=== PATIENT | female | born 1995 | race Caucasian/White ===

== ENCOUNTER 2022-11-24 16:54 | Emergency (ER) | payer BC, SELFPAY ==
[2022-11-24 17:07] VITALS: BP 141/84; PULSE 86; RESP 16; TEMP 36.7; O2SAT 99
--- NOTE | 2022-12-08 17:09 | ED.GENADULT ---
HPI - General Adult General Chief complaint: Nausea/Vomiting/Diarrhea Stated complaint: Vomiting Source: patient Mode of arrival: ambulatory Limitations: no limitations History of Present Illness HPI narrative: patient presents to the facility requesting a note to return to work. He experience nausea, vomiting and diarrhea and missed 2 days work as resolved. He has not had any symptoms since 0900 this morning. He had a fever yesterday but that has since resolved. He denies any abdominal pain, blood in the stool. No recent ETOH use. He thinks he had a viral illness which has already resolved. Related Data Allergies Allergy/AdvReac Type Severity Reaction Status Date / Time No Known Allergies Allergy Verified 11/24/22 17:05 Review of Systems Review of Systems: CONSTITUTIONAL: Reports recent fever, none currently. Denies chills. EYES: Denies visual changes, redness, or discharge. ENT: Denies rhinorrhea, congestion, sore throat, or otalgia. CARDIOVASCULAR: Denies chest pain, palpitations, or edema. RESPIRATORY: Denies cough or dyspnea. GASTROINTESTINAL: Reports recent nausea, vomiting, diarrhea, now resolved. GENITOURINARY: Denies dysuria or hematuria. SKIN: Denies rash or itching. MUSCULOSKELETAL: Denies back pain, joint pain, or myalgia. NEUROLOGIC: Denies headache, numbness, dizziness, or weakness. PSYCHIATRIC: Denies anxiety or depression. [facility] Past Medical History Medical History No pertinent past medical history Surgical History Surgical History No pertinent past surgical history Family History Family History Mother Family history non-contributory Social History Social History (Updated 12/08/22 @ 17:16 by Da Nunes, [facility], ) Substance use: never Gender identity (if verbalized by the patient): Male Spiritual care concerns: No Exam Narrative: GENERAL: Well-appearing, well-nourished, and in no acute distress. HEAD: Normocephalic, atraumatic. EYES: PERRLA and EOMI. ENT: Nares clear, no rhinorrhea or epistaxis. Mucous membranes moist. Oropharynx without tonsillar hypertrophy exudate or other lesions. Bilateral TMs pearly hoffman nonbulging NECK: Supple. No adenopathy or masses. No carotid bruits or JVD CHEST: Clear to auscultation. No respiratory distress. No wheezes rales or rhonchi HEART: Regular rate and rhythm. No murmur heard. Normal peripheral pulses. ABDOMEN: Soft, nontender, nondistended, normal active bowel sounds. EXTREMITIES: Normal range of motion. No edema. SKIN: Warm, dry, no rash. NEURO: No focal deficits. Alert and oriented x3. PSYCH: Normal mood and affect. Course Course Emergency Course: This is a 27-year-old male who presented requesting a note to return to work. He is currently asymptomatic. This seems like a reasonable request. Follow up with primary provider. Go to the ER for intractable vomiting or pain. Patient in agreement plan of care Level of Care: Express Care Visit Vital Signs Vital signs: Vital Signs Temperature 36.7 C 11/24/22 17:07 Pulse Rate 86 11/24/22 17:07 Respiratory Rate 16 11/24/22 17:07 Blood Pressure 141/84 H 11/24/22 17:07 Pulse Oximetry 99 11/24/22 17:07 Oxygen Delivery Room Air 11/24/22 17:07 Temperature 36.7 C 11/24/22 17:07 Pulse Rate 86 11/24/22 17:07 Respiratory Rate 16 11/24/22 17:07 Blood Pressure 141/84 H 11/24/22 17:07 Pulse Oximetry 99 11/24/22 17:07 Oxygen Delivery Room Air 11/24/22 17:07 Medical Decision Making Vital Signs Vital Signs: Vital Signs Temperature 36.7 C 11/24/22 17:07 Pulse Rate 86 11/24/22 17:07 Respiratory Rate 16 11/24/22 17:07 Blood Pressure 141/84 H 11/24/22 17:07 Pulse Oximetry 99 11/24/22 17:07 Oxygen Delivery Room Air 11/24/22 17:07 Tem
== END 2022-11-24 18:26 | disposition home or self-care (01) ==
PROVIDERS: Emergency Provider Nurse Practitioner; PCP Emergency Medicine
DX: R11.2 Nausea with vomiting, unspecified (principal)
CPT/HCPCS: 99211; 99212; G0463

== ENCOUNTER 2023-03-25 16:41 | Emergency (ER) | payer BC, SELFPAY ==
[2023-03-25 16:50] VITALS: BP 141/68; PULSE 76; RESP 16; TEMP 36.5; O2SAT 100
--- NOTE | 2023-03-25 17:15 | ED.GENADULT ---
HPI - General Adult General Chief complaint: Nausea/Vomiting/Diarrhea Stated complaint: Vomiting Time Seen by Provider: 03/25/23 17:15 Source: patient, RN notes reviewed and old records reviewed Mode of arrival: ambulatory Limitations: no limitations History of Present Illness HPI narrative: 27-year-old male presents for nausea vomiting. Denied abdominal pain. Patient reports that he left work early on Wednesday. Had vomiting on Wednesday. Called in sick today but does feel better. Has been able to eat and drink without issue Denies fevers currently denies any nausea or vomiting. Denies any abdominal pain. Denies any diarrhea. Related Data Home Medications Medication Instructions Recorded Confirmed phentermine 37.5 mg tablet mg 03/25/23 Allergies Allergy/AdvReac Type Severity Reaction Status Date / Time No Known Allergies Allergy Verified 11/24/22 17:05 Review of Systems Review of Systems: All systems reviewed & are unremarkable except as noted in HPI and below Constitutional: Constitutional: Reports no additional constitutional complaints Eyes: Eyes: Reports no additional eye complaints ENT: Reports system reviewed and no additional complaints, except as documented Cardiovascular: Cardiovascular: Reports no additional cardiovascular complaints, Denies chest pain and Denies dyspnea Respiratory: Respiratory: Reports no additional respiratory complaints, Denies chest congestion, Denies cough and Denies dyspnea Gastrointestinal: Gastrointestinal: Reports as per HPI, Denies abdominal pain, Reports nausea and Reports vomiting Musculoskeletal: Musculoskeletal: Reports no additional musculoskeletal complaints Integumentary/Breasts: Skin/Breast: Reports system reviewed and no additional complaints, except as docu Neurologic: Reports system reviewed and no additional complaints, except as documented Psychiatric: Psychiatric: Reports no additional psychiatric complaints Allergic/Immunologic: Allergic/Immunologic: Reports no additional allergic/immunologic complaints [facility] Past Medical History Medical History (Updated 03/25/23 @ 17:23 by Gabriela Chase APRN) No pertinent past medical history Surgical History Surgical History No pertinent past surgical history Family History Family History Mother Family history non-contributory Social History Social History Substance use: never Gender identity (if verbalized by the patient): Male Spiritual care concerns: No Comments At the time of my signature, I reviewed and agree with the nursing past medical, surgical, social, and family history. There is no relevant family history pertinent to the patient complaint. Exam Const: General: cooperative, healthy appearing, comfortable, no acute distress, well developed, alert and well nourished Nutritional Appearance: well nourished Orientation/consciousness: patient oriented x3 Limitations: no limitations HENMT: Head: normal to inspection Ears: hearing grossly normal bilaterally and external ears normal Face/Nose/Sinus: Normal external nose present, Normal nares present, Normal nasal mucous membranes and turbinates present and normal facial exam Face and sinus: normal facial exam Mouth: Yes lip normal and Yes moist mucous membranes Eyes: General: appearance normal, both eyes and all related structures Alignment and Position: alignment normal Periorbital: periorbital findings normal Pupils: Equal, round and reactive pupils present EOM: EOMs intact bilaterally Neck: Neck: normal visual inspection, full ROM, no lymphadenopathy and no meningeal signs Chest: Chest palpation & inspection: normal inspection of the chest Resp: Effort & Inspection: normal respiratory effort and able to speak in complete sentences Auscultation: clear t
== END 2023-03-25 17:32 | disposition home or self-care (01) ==
PROVIDERS: Emergency Provider Nurse Practitioner; PCP Nurse Practitioner Family
DX: R11.2 Nausea with vomiting, unspecified (principal)
CPT/HCPCS: 99211; G0463

== ENCOUNTER 2023-07-30 11:22 | Emergency (ER) | payer BC, SELFPAY ==
--- NOTE | ~2023-07-30 | XR_ITS ---
EXAMINATION: XR thoracic spine 3V DATE: 07/30/2023 11:52 INDICATION: Mid spine pain. TECHNIQUE: 3 views of thoracic spine on 5 radiographs were obtained. COMPARISON: None. FINDINGS: There is 7 degrees dextrocurvature of upper thoracic spine and 6 degrees levocurvature of l ower thoracic spine. Vertebral body heights are normal. There is mildly decreased disc height at mult iple levels in mid thoracic spine. There are endplate osteophytes at multiple levels. IMPRESSION: 1. Mild thoracic spondylosis. Reviewed, dictated and finalized at location A. STANT TO THE VICE PRESIDENT
[2023-07-30 11:27] VITALS: BP 155/90; PULSE 74; RESP 18; TEMP 36.3; O2SAT 98
--- NOTE | 2023-07-30 11:33 | ED.BACK ---
HPI - Back Pain/Injury General Chief Complaint: Back Pain/Injury Stated Complaint: Back Pain Time Seen by Provider: 07/30/23 11:30 Source: patient Mode of arrival: ambulatory Limitations: no limitations History of Present Illness HPI Narrative: Vinod is a 28-year-old male patient presenting to clinic today with complaints of severe thoracic back pain. He reports symptoms started when he woke up on Wednesday. Has not taken any Tylenol or Motrin for the pain. Significant other states he tried to use icy Hot without relief. Pain has gradually gotten worse over the past 5 days and rates it a 10/10 currently. Pain is radiating into his sternum. Denies any numbness or tingling in his arms, public relations account executive weakness, saddle anesthesia, loss of bowel bladder, or numbness or tingling going down his legs. Pain is aggravated by movement and obviously has not taken anything to help alleviate the pain other than the icy Hot. Related Data Allergies Allergy/AdvReac Type Severity Reaction Status Date / Time No Known Allergies Allergy Verified 03/26/23 11:00 Review of Systems Review of Systems: Pertinent positives per HPI. Patient denies any fever, chills, rash, headache, visual changes, dizziness, cough, runny nose, sore throat, shortness of breath, chest pain, palpitations, nausea, vomiting, diarrhea, constipation, abdominal pain, or any urinary issues. [facility] Past Medical History Medical History No pertinent past medical history Surgical History Surgical History No pertinent past surgical history Family History Family History Mother Family history non-contributory Other Hypertension Social History Social History Smoking status: Never smoker Alcohol intake: never Substance use: never Gender identity (if verbalized by the patient): Male Spiritual care concerns: No Comments At the time of my signature, I reviewed and agree with the nursing past medical, surgical, social, and family history. There is no relevant family history pertinent to the patient complaint. Exam Narrative: General: Well-developed, well nourished, in no apparent distress Head: Normocephalic, atraumatic. Cardio: Regular rate and rhythm, s1 and s2 normal, no murmur appreciated. Resp: Clear to auscultation bilaterally, no rhonchi, rales, wheezing or rubs. Musculoskeletal: No deformity,tender to palpation over the midthoracic back over the spine, sitting in tripod position to help alleviate pain, bilateral upper and lower muscle strength strong and equal, hand grasp strong and equal, peripheral pulse strong, no edema, no cyanosis,antalgic gait and station Course Course Emergency Course: Portions of this record may have been created with voice recognition software. Level of Care: Express Care Visit Vital Signs Vital signs: Vital Signs Temperature 36.3 C L 07/30/23 11:27 Pulse Rate 74 07/30/23 11:27 Respiratory Rate 18 07/30/23 11:27 Blood Pressure 155/90 H 07/30/23 11:27 Pulse Oximetry 98 07/30/23 11:27 Oxygen Delivery Room Air 07/30/23 11:27 Temperature 36.3 C L 07/30/23 11:27 Pulse Rate 74 07/30/23 11:27 Respiratory Rate 18 07/30/23 11:27 Blood Pressure 155/90 H 07/30/23 11:27 Pulse Oximetry 98 07/30/23 11:27 Oxygen Delivery Room Air 07/30/23 11:27 Vital signs reviewed MDM - Back Pain/Injury MDM Narrative Medical decision making narrative: At the time of visit patient is sitting on the exam table uncomfortable. Rates his pain at 10 at 10. Toradol 60 mg IM given in the clinic today for pain. Thoracic spine x-ray was completed and shows some bone spurs off the endplates of the thoracic spine as well as some mild spondylosis of the right thoracic spine multileve
[2023-07-30] MEDS: KETOROLAC (*BKC) 60 MG/2 ML VIAL IM (11:38)
--- NOTE | 2023-07-30 12:20 | ECG_ITS ---
Measurements Intervals [place] Rate: 63 P: 34 DC: 151 QRS: 40 QRSD: 98 T: 31 QT: 391 QTc: 403 Interpretive Statements SINUS RHYTHM NORMAL ELECTROCARDIOGRAM NO PREVIOUS ECG AVAILABLE FOR COMPARISON Electronically Signed On 07-30-2023 13:40:44 [employer]PORATE TECHNICAL RECRUITER by Saji Clarke M.D.
== END 2023-07-30 12:39 | disposition home or self-care (01) ==
PROVIDERS: Emergency Provider Nurse Practitioner Family; PCP Nurse Practitioner Family
DX: M54.6 Pain in thoracic spine (principal); M47.814 Spondylosis without myelopathy or radiculopathy, thoracic region
CPT/HCPCS: 72072; 81003; 93005; 96372; 99213; G0463; J1885

== ENCOUNTER 2025-05-12 18:02 | Emergency (ER) | payer BC, SELFPAY ==
--- OUTSIDE RECORDS SUMMARY | 2025-05-12 18:11 | XMS_ITS | Clinical Summary ---
Author Organization [facility] Address [address] [place] [address] Care Team Providers Care Lactation Coordinator Name Role Phone Unavailable Primary Care Provider Unavailabl e Source Comments [facility],non-owned Affiliates and Associated Physician Practices is amultiple site organization consisting of ambulatory clinics and hospital sitesin [place], [place], [place] and [place]. This disclosure is being madepursuant to the Care Everywhere program and may not contain all information available regarding this patient. Last updated 18.[employer] Allergies No known active allergies Medications * Be aware that medications may not be up to date on this document. Alwaysverify current medications with the patient. No known medications Social History Tobacco Use Types Packs/Day Years Used Date Smoking Tobacco: Never Smokeless Tobacco: Former Quit: 2015 Sex and Gender Information Value Date Recorded Sex Assigned at Not on file Legal Sex Male 8:34 AM CDT Gender Identity Not on file Sexual Orientation Not on file Last Filed Vital Signs Vital Sign Reading Time Taken Comments Blood Pressure 128/84 01/07/2019 2:44 PM CDT Pulse 83 01/07/2019 2:44 PM CDT Temperature 36.7 C (98.1 F) 01/07/2019 2:44 PM CDT Respiratory Rate 17 01/07/2019 2:44 PM CDT Oxygen Saturation 98% 01/07/2019 2:44 PM CDT Inhaled Oxygen Concentration - - Weight 103.4 kg (228 lb) 01/07/2019 2:44 PM CDT Height 180.3 cm (5' 11) 01/07/2019 2:44 PM CDT Body Mass Index 31.8 01/07/2019 2:44 PM CDT Plan of Treatment Health Maintenance Due Date Last Done Comments HIV SCREENING 2009 HEPATITIS C SCREENING 07/01/2012 DTAP/TDAP/TD VACCINES (1 - Tdap) 2013 HEPATITIS B VACCINE (1 of 3 - 19+ 3-dose series) 2013 HPV VACCINE (1 - 3-dose SCDM series) 2021 DEPRESSION SCREENING 08/30/2024 COVID-19 VACCINE (1 - 2023-2 5 season) 2025 INFLUENZA VACCINE (#1) 2025 ZOSTER VACCINE (1 of 2) 2044 HIB VACCINE Aged Out No longer eligi ble based on patient's age to complete this topic MENINGOCOCCAL (Group B) VACC INE SHARED DECISION-MAKING Aged Out No longer eligibl e based on patient's age to complete this topic MENINGOCOCCAL GROUPS A/C/Y/W VACCINE Aged Out No longer eligible b ased on patient's age to complete this topic PNEUMOCOCCAL VACCINE Aged Out No long er eligible based on patient's age to complete this topic Insurance ANTHEM ANTHEM
[2025-05-12 18:12] VITALS: BP 136/78; PULSE 71; RESP 18; TEMP 36.6; O2SAT 99
[2025-05-12 18:29] LABS: EDSTREPNEGPOS1 Negative (Negative)
--- NOTE | 2025-05-12 18:54 | ED.URI ---
HPI - URI/Sore Throat General Chief Complaint: Upper Respiratory Infection Stated Complaint: strep throat Time Seen by Provider: 05/12/25 18:36 Source: patient and RN notes reviewed Mode of arrival: ambulatory Limitations: no limitations History of Present Illness HPI Narrative: Patient presents today complaining of sore throat and sweats since yesterday. 3 members of patient's household are currently positive for strep. Denies fever. Currently rates his pain 5/10 and has taken no OTC treatment prior to arrival. Related Data Allergies Allergy/AdvReac Type Severity Reaction Status Date / Time No Known Allergies Allergy Verified 05/12/25 18:23 [facility] Past Medical History Medical History No pertinent past medical history Surgical History Surgical History No pertinent past surgical history Family History Family History Mother Family history non-contributory Other Hypertension Social History Social History Smoking status: Never smoker Alcohol intake: never Substance use: never Gender identity (if verbalized by the patient): Male Spiritual care concerns: No Comments At time of signature, I have reviewed and agree with nursing past medical, surgical, social and family history unless otherwise noted. Please see nursing chart for further information. There is no relevant family history pertinent to the presenting complaint Exam Narrative: GENERAL: Well-appearing, well-nourished, and in no acute distress. HEAD: Normocephalic, atraumatic. EYES: EOMI. No redness or drainage. Conjunctivae normal. ENT: Mucous membranes pink and moist. Nares clear. No rhinorrhea. TMs normal bilaterally. Throat very mildly erythematous without edema or exudate. Uvula midline. NECK: Normal AROM. Supple. No lymphadenopathy. CHEST: No respiratory distress. Clear to auscultation. HEART: Regular rate and rhythm. No murmur appreciated. EXTREMITIES: Normal range of motion. No edema. SKIN: Warm, dry, no rash. Capillary refill normal. Normal skin turgor. NEURO: No focal deficits. Alert and oriented x3. Gait steady. PSYCH: Normal affect. No signs of depression or anxiety. Course Course Level of Care: Express Care Visit Vital Signs Vital signs: Vital Signs Temperature 98 F 05/12/25 18:12 Pulse Rate 71 05/12/25 18:12 Respiratory Rate 18 05/12/25 18:12 Blood Pressure 136/78 05/12/25 18:12 Pulse Oximetry 99 05/12/25 18:12 Oxygen Delivery Room Air 05/12/25 18:12 Temperature 98 F 05/12/25 18:12 Pulse Rate 71 05/12/25 18:12 Respiratory Rate 18 05/12/25 18:12 Blood Pressure 136/78 05/12/25 18:12 Pulse Oximetry 99 05/12/25 18:12 Oxygen Delivery Room Air 05/12/25 18:12 Reviewed MDM - URI/Sore Throat MDM Narrative Medical decision making narrative: 29-year-old male patient presents today complaining of sore throat and that started yesterday. Denies any additional symptoms at this time. States multiple members of his family are positive for strep throat at this time. His rapid strep is positive. Due to exposure and current symptoms, patient will be started on a course of amoxicillin for presumed early strep throat. Culture pending. Vital signs stable. Differential Diagnosis Differential diagnosis: Likely upper respiratory infection, viral infection, pharyngitis and other (Strep throat) Lab Data Attestation: I reviewed the patient's lab results. Labs: Lab Results 05/12/25 Range/Units 18:27 POC Grp A Strep Screen Negative (Negative) Critical Care Time Critical Care Time Critical Care Time: No Discharge Plan Discharge Clinical Impression: Strep throat exposure Patient Disposition: Home Condition: Stable Instructions: Antibiotic Form, Strep Throat (DC) Additional Instructions: Your rapid strep screen today is negative, however, you are going to be treated with amoxicillin due to your exposure. Please take the amoxicillin as prescribed. Take Tylenol or ibuprofen for pain if needed. Follow-up with your PCP in 3 days if symptoms are not improving. Go to the ER immediately if you have worsening symptoms such as shortness of breath, difficulty swallowing. Your blood pressure was elevated above 120/80 today at Urgent Care. This puts you above the threshold for follow up. Please schedule a followup visit with your personal physician as soon as possible, for further evaluation and treatment. Even blood pressure exceeding 120/80 may indicate pre-hypertension. Patient Language: [place] Prescriptions: New amoxicillin 875 mg tablet 875 mg PO Q12H 10 Days Qty: 20 0RF Follow-up/Referrals: Ne,Krystal Miller APRN [Primary Care Provider, Unknown] Time of Disposition: 18:46
== END 2025-05-12 18:53 | disposition home or self-care (01) ==
PROVIDERS: Emergency Provider Nurse Practitioner; PCP Nurse Practitioner Family
DX: Z20.818 Contact with and (suspected) exposure to other bacterial communicable diseases (principal)
CPT/HCPCS: 87081; 87880; 99213; G0463